=== PATIENT | female | born 1980 | race Caucasian/White ===

== ENCOUNTER 2018-01-21 17:40 | Emergency (ER) | payer OTHER ==
[~2018-01-21] VITALS: Ht 165.1 cm; Wt 72.6 kg
--- NOTE | ~2018-01-21 | EKG ---
[address] [place] [address] ELECTROCARDIOGRAM REPORT Name: ELAINE COWAN Room #: [facility]#: [id number] Admission: 01/21/18 Attend Phys: Discharge: 01/21/18 Date of : 80 Report #: [id number] THIS REPORT FOR: //name// [facility] ED Test Date: 2018-01-21 Test Time: 17:48:09 Pat Name: ELAINE COWAN Department: Room: Gender: F [employer] Operator: JUANA : 1980 Requested By: Nela Denson Order Number: [id number] MD: Po Michaels Measurements Intervals [place] Rate: 63 P: 44 MT: 158 QRS: 68 QRSD: 97 T: 47 QT: 389 QTc: 399 Interpretive Statements Sinus rhythm Probable left ventricular hypertrophy No previous ECG available for comparison Electronically Signed On 01-22-2018 11:30:44 CDT by Po Michaels [email or web address] <ELECTRONICALLY SIGNED> By: Po Michaels MD, [facility] 01/22/18 1130 1748 1748 Po Michaels MD, FACC /EPI
[2018-01-21 18:07] LABS: ABSOLUTE NEUTROPHILS 2.5 thou/uL (1.4-8.2); BASOPHILS 0.7 % (0.0-2.0); EOSINOPHILS 2.6 % (0.0-3.0); HEMATOCRIT 36.9 % (37.0-47.0); HEMOGLOBIN 12.7 gm/dL (12.0-15.0); LYMPHOCYTES 46.7 % (24.0-44.0); MCH 31.9 pg (26.0-34.0); MCHC 34.5 g/dL (28.0-37.0); MCV 92.4 fL (80.0-100.0); PLATELET COUNT 351 thou/uL (150-400); RBC 3.99 mil/uL (4.20-5.00); RDW 12.7 % (10.5-14.5); WBC 5.8 thou/uL (4.0-11.0)
[2018-01-21 18:16] LABS: ANION GAP 5 mmol/L (7-16); BUN 10 mg/dL (7-18); CALCIUM 9.4 mg/dL (8.5-10.1); CHLORIDE 105 mmol/L (98-107); CO2 28 mmol/L (21-32); CREATININE 0.8 mg/dL (0.6-1.0); GLUCOSE 61 mg/dL (74-106); POTASSIUM 3.7 mmol/L (3.5-5.1); SODIUM 138 mmol/L (136-145)
[2018-01-21 18:25] LABS: TROPONIN-I <0.06 ng/mL (<0.06)
[2018-01-21] MEDS ORDERED: PEPCID20 MG PO (19:26)
[2018-01-21 19:30] VITALS: BP 110/76
[2018-01-21] MEDS ORDERED: VENTOLIN HFA 1818 GM INH (19:34)
== END 2018-01-21 19:45 | disposition home or self-care (01) ==
LOC: ER 17:40
PROVIDERS: Student in an Organized Health Care Education/Training Program
DX: J06.9 Acute upper respiratory infection, unspecified (principal); Z98.890 Other specified postprocedural states

== ENCOUNTER 2018-05-19 15:13 | Emergency (ER) | payer OTHER ==
[~2018-05-19] VITALS: Ht 165.1 cm; Wt 72.6 kg
[~2018-05-19 15:13] MED LIST: PEPCID20 MG PO; VENTOLIN HFA 1818 GM INH
[2018-05-19 15:14] VITALS: BP 125/58
[2018-05-19] MEDS ORDERED: CLEOCIN HCL300 MG PO (15:26)
[2018-05-19] MEDS ORDERED: IBUPROFEN 600600 M1 PO (15:29)
== END 2018-05-19 15:44 | disposition home or self-care (01) ==
LOC: ER 15:13
DX: K04.7 Periapical abscess without sinus (principal); Z88.0 Allergy status to penicillin; Z88.1 Allergy status to other antibiotic agents; Z98.890 Other specified postprocedural states

== ENCOUNTER 2018-07-28 15:17 | Emergency (ER) | payer OTHER ==
[~2018-07-28] VITALS: Ht 165.1 cm; Wt 71.7 kg
[~2018-07-28 15:17] MED LIST changes: +CLEOCIN HCL300 MG PO; +IBUPROFEN 600600 M1 PO
[2018-07-28 16:15] LABS: ABSOLUTE NEUTROPHILS 5.4 thou/uL (1.4-8.2); BASOPHILS 0.6 % (0.0-2.0); EOSINOPHILS 1.6 % (0.0-3.0); HEMATOCRIT 39.9 % (37.0-47.0); HEMOGLOBIN 13.6 gm/dL (12.0-15.0); MCH 31.7 pg (26.0-34.0); MCV 93.1 fL (80.0-100.0); PLATELET COUNT 441 thou/uL (150-400); POLYS 63.8 % (36.0-66.0); RBC 4.28 mil/uL (4.20-5.00); WBC 8.4 thou/uL (4.0-11.0)
[2018-07-28 16:16] LABS: CALCIUM 9.6 mg/dL (8.5-10.1); CREATININE 0.8 mg/dL (0.6-1.0)
[2018-07-28 18:10] VITALS: BP 95/45
== END 2018-07-28 18:10 | disposition home or self-care (01) ==
LOC: ER 15:17
PROVIDERS: Nurse Practitioner
DX: G43.909 Migraine, unspecified, not intractable, without status migrainosus (principal); R11.10 Vomiting, unspecified; F17.210 Nicotine dependence, cigarettes, uncomplicated; Z88.0 Allergy status to penicillin; Z88.1 Allergy status to other antibiotic agents; Z98.890 Other specified postprocedural states

== ENCOUNTER 2020-11-20 14:52 | Emergency (ER) | payer OTHER ==
[~2020-11-20] VITALS: Ht 165.1 cm; Wt 72.6 kg
[2020-11-20] MEDS ORDERED: PROAIR HFA8.5 GM INH (16:33)
[2020-11-20] MEDS ORDERED: PREDNISONE 20 M20 MG PO (16:33)
[2020-11-20 16:42] VITALS: BP 134/87
== END 2020-11-20 16:43 | disposition home or self-care (01) ==
LOC: ER 14:52
DX: J06.9 Acute upper respiratory infection, unspecified (principal); Z20.822 Contact with and (suspected) exposure to COVID-19; F17.210 Nicotine dependence, cigarettes, uncomplicated; Z88.0 Allergy status to penicillin; Z88.1 Allergy status to other antibiotic agents; Z98.890 Other specified postprocedural states